=== PATIENT | male | born 1985 | race Caucasian/White ===

== ENCOUNTER 2018-11-15 14:35 | Emergency (ER) | payer OTHER ==
[2018-11-15] MEDS ORDERED: Adacel (T-DAP) 0.5 ML SYRINGE ONE (17:20)
--- NOTE | 2018-11-15 17:57 | RAD ---
Right wrist 3 views: 11/15/2018 COMPARISON: None HISTORY: Laceration FINDINGS: Soft tissue gas noted adjacent to the radial styloid consistent with history of laceration in this region. No associated radiopaque foreign body, acute fracture, or evidence of dislocation. There is fusion of the lunate and triquetrum. There is an old fracture of the fifth metacarpal shaft. IMPRESSION: Soft tissue laceration with no associated fracture or radiopaque foreign body.
[2018-11-15] MEDS ORDERED: Bacitracin Zinc 1 Packet ONE (18:00)
== END 2018-11-15 18:37 | disposition home or self-care (01) ==
LOC: ERS 14:35
DX: S61.512A Laceration without foreign body of left wrist, initial encounter (principal); F41.9 Anxiety disorder, unspecified; Z23 Encounter for immunization; W25.XXXA Contact with sharp glass, initial encounter
CPT/HCPCS: 90471; 90715

== ENCOUNTER 2018-11-16 08:46 | Emergency (ER) | payer OTHER | END 2018-11-16 09:40 | disposition home or self-care (01) | LOC: ERS 08:46 | DX: S61.511A Laceration without foreign body of right wrist, initial encounter (principal); Z79.899 Other long term (current) drug therapy; W25.XXXA Contact with sharp glass, initial encounter | CPT/HCPCS: 99282 ==

== ENCOUNTER 2018-12-09 03:07 | Emergency (ER) | payer OTHER | END 2018-12-09 03:38 | disposition home or self-care (01) | LOC: ERS 03:07 | DX: S61.511D Laceration without foreign body of right wrist, subsequent encounter (principal); F41.9 Anxiety disorder, unspecified; F17.210 Nicotine dependence, cigarettes, uncomplicated; W25.XXXD Contact with sharp glass, subsequent encounter ==

== ENCOUNTER 2021-07-27 15:36 | Emergency (ER) | payer OTHER ==
[2021-07-27] MEDS ORDERED: Metoclopramide HCl 10 MG/2 ML VIAL ONE (21:19)
[2021-07-27] MEDS ORDERED: diphenhydrAMINE 50 MG/ML VIAL ONE (21:19)
[2021-07-27 22:19] LABS: #Lymphocytes 1.5 thou/uL (1.20-3.40); #Monocytes 0.3 thou/uL (0.11-0.59); #Neutrophils 3.9 thou/uL (1.40-6.50); %Basophils 0.4 % (0.0-1.0); %Eosinophils 0.8 % (0.0-10.0); %Lymphocytes 26.5 % (21.0-51.0); %Monocytes 5.6 % (0.0-10.0); %Neutrophils 66.7 % (42.0-75.0); Hemoglobin 15.3 g/dL (14.0-18.0); Mean Corpuscular HGB CONC 33.7 g/dL (32.0-36.0); Mean Platelet Volume 7.3 fL (7.4-10.4); Platelet Count 293 thou/uL (130-400); RBC Distribution Width 11.9 % (11.5-14.5); Red Blood Cell (RBC) Count 4.38 mill/uL (4.70-6.10); White Blood Cell (WBC) Count 5.8 thou/uL (4.8-10.8)
[2021-07-27 22:30] LABS: PTT 26.9 sec (22.9-36.1); Prothrombin Time 13.7 sec (12.0-14.7)
[2021-07-27 22:41] LABS: ALT (SGPT) 39 U/L (8-55); AST (SGOT) 26 U/L (5-34); Albumin 4.3 g/dL (3.5-5.0); Alkaline Phosphatase 64 U/L (40-110); Anion Gap 14 mmol/L (10-20); BUN (Urea Nitrogen) 12 mg/dL (8.9-20.6); Bilirubin, Total 0.6 mg/dL (0.2-1.2); Calc. Creatinine Clearance 0 mL/min (70-130); Calcium 9.4 mg/dL (7.8-10.44); Carbon Dioxide 24 mmol/L (22-29); Chloride 104 mmol/L (98-107); Globulin 3.4 g/dL (2.4-3.5); Glucose 98 mg/dL (70-105); Potassium 3.8 mmol/L (3.5-5.1); Protein, Total 7.7 g/dL (6.0-8.3); Sodium 138 mmol/L (136-145)
[2021-07-27] MEDS ORDERED: Acetaminophen 500 MG TAB ONE (23:40)
[2021-07-28 00:02] LABS: SARS-CoV-2 NAA Rapid Test Not Detected (NotDetected)
== END 2021-07-28 01:02 | disposition short-term general hospital (02) ==
LOC: ERS 15:36
DX: D49.1 Neoplasm of unspecified behavior of respiratory system (principal); H54.61 Unqualified visual loss, right eye, normal vision left eye; F17.210 Nicotine dependence, cigarettes, uncomplicated; Z20.822 Contact with and (suspected) exposure to COVID-19
CPT/HCPCS: 36415; 70450; 80053; 85025; 85610; 85730; 86850; 86900; 86901; 96365; 96375; J1200; J2765; U0002

== ENCOUNTER 2023-04-27 13:34 | Emergency (ER) | payer OTHER ==
[2023-04-27] MEDS ORDERED: Boostrix 0.5 ML (Tdap) VIAL (>/=7 yrs of age) ONE (15:27)
== END 2023-04-27 15:45 | disposition home or self-care (01) ==
LOC: ERS 13:34
DX: S61.214A Laceration without foreign body of right ring finger without damage to nail, initial encounter (principal); F17.210 Nicotine dependence, cigarettes, uncomplicated; W54.8XXA Other contact with dog, initial encounter
CPT/HCPCS: 90471; 90715; 99282